=== PATIENT | female | born 1970 ===

== ENCOUNTER 2021-07-08 01:11 | Emergency (ER) | payer OTHER, SELFPAY ==
--- NOTE | ~2021-07-08 | CT_ITS ---
EXAMINATION: CT ABDOMEN AND PELVIS WITH CONTRAST CLINICAL INFORMATION: Lower abdominal pain COMPARISON: 12/15/2017 TECHNIQUE: Multidetector volumetric images were obtained from the superior aspect of the liver through the pubic symphysis following administration 85 mL of Omnipaque 350 intravenous contrast. Sagittal and coronal reformatted images were obtained on the technologist's workstation. Oral contrast: No This CT examination was performed using dose optimization techniques as appropriate, variously including the following: *Automated exposure control *Adjustment of mA and/or kV according to patient size (this includes techniques or standardized protocols for targeted exams where dose is matched to indication/reason for exam; i.e. extremities or head) *Use of iterative reconstruction technique DLP: 689 mGy-cm FINDINGS: LUNG BASES: The visualized lung bases are unremarkable. LIVER, GALLBLADDER, AND BILIARY TREE: The liver is normal in size, shape, and attenuation. There are a few scattered coarse hepatic parenchymal calcifications likely calcified granulomas. No suspicious liver lesions. Cholecystectomy. No biliary dilatation. PANCREAS: Unremarkable. SPLEEN: Unremarkable. ADRENAL GLANDS: Unremarkable. KIDNEYS AND URETERS: Increased size and number of bilateral nonobstructive intrarenal calculi numbering at least 3 within the right kidney and 6 within the left kidney. The largest stone in the left kidney measures 1.6 cm within the renal pelvis and is associated with urothelial thickening and mild peripelvic fat stranding suggestive of pyelitis. No ureteral calculi kidneys enhance symmetrically. BLADDER: Unremarkable. GASTROINTESTINAL TRACT: The small and large bowel are unremarkable. The appendix is unremarkable. ABDOMINAL WALL: No significant hernia is appreciated. LYMPH NODES: Normal. VASCULAR: Unremarkable. PELVIC VISCERA: Retroflexed uterus. Evidence of previous section. Multiple nabothian cysts present within the cervix. No adnexal abnormalities. OSSEOUS STRUCTURES: No acute or suspicious osseous abnormality CT/CT abdomen pelvis w con IMPRESSION: Bilateral nonobstructive intrarenal calculi, including a 1.6 cm calculus within the left renal pelvis associated with urothelial thickening, hyperemia. Pelvic fat stranding suggestive of pyelitis. No evidence of nephritis. Fleischner guidelines were followed.
[2021-07-08 02:05] VITALS: BP 155/75; PULSE 70; RESP 20; TEMP 36.8; O2SAT 98; BMI 36.6
[2021-07-08] MEDS: Acetaminophen 325 MG TABLET 975 MG PO (03:07)
[2021-07-08 04:00] LABS: Basophils Percent Auto 0.3 % (0-2); Eosinophils Absolute Auto 0.2 X10*3/uL (0.0-0.4); Eosinophils Percent Auto 1.4 % (0-4); Hematocrit 34.3 % (37.0-47.0); Hemoglobin 10.4 g/dl (12.0-16.0); Imm Gran Abs Auto 0.03 X10*3/uL (0.00-0.03); Imm Gran Pct Auto 0.3 % (0.0-0.4); Lymphocytes Absolute Auto 3.5 X10*3/uL (1.2-4.9); Lymphocytes Percent Auto 32.7 % (20-40); MANUAL DIFF FLAG NO; Mean Corpuscular HGB Conc 30.3 g/dl (31.0-35.0); Mean Corpuscular Hemoglobin 21.8 pg (27.0-33.0); Mean Corpuscular Volume 71.9 fL (80.0-98.0); Mean Platelet Volume 10.3 fL (9.4-12.3); Monocytes Absolute Auto 0.7 X10*3/uL (0.1-1.2); Monocytes Percent Auto 6.1 % (2-11); Neutrophils Absolute Auto 6.3 x10*3/uL (2.0-8.3); Neutrophils Percent Auto 59.2 % (45-73); Platelet Count 265 X10*3/uL (160-400); Red Blood Count 4.77 X10*6/uL (4.20-5.50); Red Cell Distribution Width 16.1 % (11.0-16.0); White Blood Count 10.7 X10*3/uL (4.8-10.8)
--- NOTE | 2021-07-08 04:00 | ED_ITS ---
HPI - Abdominal Pain General Chief Complaint: Abdominal Pain Stated Complaint: menstrual pain & blood clots Time Seen by Provider: 07/08/21 01:25 Source: patient and family Mode of arrival: ambulatory History of Present Illness HPI narrative: 51-year-old female who presents for onset of lower abdominal pain that is crampy in nature and feels like her menstrual pain that has been associated with nausea as well as chills, patient reports that her current menstrual bleeding is consistent with all prior and denies any symptoms of perimenopause, history of bleeding disorder, history of kidney stones or diverticulosis. Patient tried her regular menstrual cycle medications without success. Related Data Previous Rx's Medication Instructions Recorded cefixime 400 mg capsule 400 mg PO DAILY 5 Days #5 cap 07/08/21 ketorolac 10 mg tablet 10 mg PO Q6H PRN 5 Days #20 tab 07/08/21 Allergies Allergy/AdvReac Type Severity Reaction Status Date / Time sumatriptan [SUMATRIPTAN] Allergy Mild UNKNOWN Verified 07/08/21 03:56 amitriptyline Allergy Unknown Unknown Verified 07/08/21 03:56 Pt states no food allergies Allergy Unknown Unknown Uncoded 07/08/21 02:05 Review of Systems Review of Systems Pertinent positives and negatives as stated in HPI 10 point review of systems is otherwise negative. [facility] Past Medical History Source: nursing notes reviewed Social History Social History Advance Directives: No Patient : No Physical Exam ED Vital Signs: Vital Signs - 24 hr 07/08/21 02:05 07/08/21 05:18 07/08/21 06:01 Temperature 98.3 F Pulse Rate 70 70 Respiratory Rate 20 18 16 Blood Pressure 155/75 H 140/62 H Pulse Oximetry 98 99 BMI result Body Mass Index 36.6 VITAL SIGNS: Reviewed. GENERAL: Well developed, well nourished, in no acute distress. HEAD: Normocephalic/atraumatic EYES: PERRLA, EOMI EARS: Ext canals without abnormality OROPHARYNX: no oral lesions noted, posterior pharynx clear LUNGS: Normal breath sounds. No adventitious sounds or accessory muscle use. SpO2<98> CARDIOVASCULAR: Regular rate and rhythm without noted murmurs ABDOMEN: Soft, tenderness without rebound in left lower quadrant extending across suprapubic, non-distended with bowel sounds. MUSCULOSKELETAL: No tenderness, deformities, or effusions noted on gross inspection. EXTREMITIES: No cyanosis, clubbing or edema. SKIN: Inspection of the skin reveals no rashes NEUROLOGIC: Alert and oriented x 4. Course Course Course Narrative: 51-year-old female with history and clinical presentation suggestive of possible diverticulitis, renal colic but doubt UTI or menstrual related symptoms. 0545: I suspect infection. Review of all investigations consistent with UTI with ascending infection affecting the the left kidney. Patient provided with pain medication, antibiotics. I discuss all the results with the patient at bedside and she states that this has happened before and that she has been informed that her urine infections ascend into her kidneys. Patient otherwise appears comparable and is receiving antibiotics and will be discharged home with a course of antibiotics. MDM - Abdominal Pain Lab Data Result diagrams: 07/08/21 03:53 07/08/21 03:53 Labs: Lab Results 07/08/21 07/08/21 07/08/21 Range/Units 03:53 03:53 03:53 WBC 10.7 (4.8-10.8) X10*3/uL RBC 4.77 (4.20-5.50) X10*6/uL Hgb 10.4 L (12.0-16.0) g/dl Hct 34.3 L (37.0-47.0) % MCV 71.9 L (80.0-98.0) fL MCH 21.8 L (27.0-33.0) pg MCHC 30.3 L (31.0-35.0) g/dl RDW 16.1 H (11.0-16.0) % Plt Count 265 (160-400) X10*3/uL MPV 10.3 (9.4-12.3) fL Immature Gran % (Auto) 0.3 (0.0-0.4) % Neut % (Auto) 59.2 (45-73) % Lymph % (Auto) 32.7 (20-40) % Barron % (Auto) 6.1 (2-11) % Eos % (Auto) 1.4 (0-4) % Baso % (Auto) 0.3 (0-2) % Lymph # (Auto) 3.5 (1.2-4.9) X10*3/uL Barron # (Auto) 0.7 (0.1-1.2) X10*3/uL Eos # (Auto) 0.2 (0.0-0.4) X10*3/uL Baso # (Auto) 0.0 (0.0-0.2) X10*3/uL Abs Immat Gran (auto) 0.03 (0.00-0.03) X10*3/uL Absolute Neuts (auto) 6.3 (2.0-8.3) x10*3/uL Absolute Nucleated RBC 0.000 (0.0-0.012) X10*3/uL Nucleated RBC % (auto) 0.0 (0.0-0.2) /100WBC Sodium (135-145) mmol/L Potassium (3.3-5.1) mmol/L Chloride (96-108) mmol/L Carbon Dioxide (22-29) mmol/L Anion Gap (12-20) BUN (9-16) mg/dL Creatinine (0.5-1.4) mg/dL Estim Creat Clear Calc Estimated GFR Random Glucose (60-115) mg/dL Lactic Acid (0.5-2.0) mmol/L Calcium (8.4-10.2) mg/dL Total Bilirubin (0.0-1.0) mg/dL AST (5-31) U/L ALT (0-31) U/L Alkaline Phosphatase (39-117) U/L Total Protein (6.5-8.0) g/dL Albumin (3.5-5.0) g/dL Lipase (8-78) U/L Urine Color RED A Urine Appearance CLOUDY Urine pH 6.5 (5.0-8.0) Ur Specific [place] 1.020 (1.005-1.025) Urine Protein 2+ H (NEG-TRACE) MG/DL Urine Glucose (UA) NEG (NEG) MG/DL Urine Ketones 5 (NEG) MG/DL Urine Blood 3+ H (NEG) Urine Nitrite NEG (NEG) Ur Leukocyte Esterase 2+ H (NEG) Urine RBC 76-150 H (0) /HPF Urine WBC 15-29 H (0-4) /HPF Ur Squamous Epith Cells 2+ /LPF Urine Bacteria 1+ /LPF Urine Mucus 2+ /LPF Urine Test NEGATIVE (NEGATIVE) 07/08/21 07/08/21 Range/Units 03:53 06:14 WBC (4.8-10.8) X10*3/uL RBC (4.20-5.50) X10*6/uL Hgb (12.0-16.0) g/dl Hct (37.0-47.0) % MCV (80.0-98.0) fL MCH (27.0-33.0) pg MCHC (31.0-35.0) g/dl RDW (11.0-16.0) % Plt Count (160-400) X10*3/uL MPV (9.4-12.3) fL Immature Gran % (Auto) (0.0-0.4) % Neut % (Auto) (45-73) % Lymph % (Auto) (20-40) % Barron % (Auto) (2-11) % Eos % (Auto) (0-4) % Baso % (Auto) (0-2) % Lymph # (Auto) (1.2-4.9) X10*3/uL [place]ron # (Auto) (0.1-1.2) X10*3/uL Eos # (Auto) (0.0-0.4) X10*3/uL Baso # (Auto) (0.0-0.2) X10*3/uL Abs Immat Gran (auto) (0.00-0.03) X10*3/uL Absolute Neuts (auto) (2.0-8.3) x10*3/uL Absolute Nucleated RBC (0.0-0.012) X10*3/uL Nucleated RBC % (auto) (0.0-0.2) /100WBC Sodium 138 (135-145) mmol/L Potassium 4.9 (3.3-5.1) mmol/L Chloride 108 (96-108) mmol/L Carbon Dioxide 21 L (22-29) mmol/L Anion Gap 14 (12-20) BUN 13 (9-16) mg/dL Creatinine 0.79 (0.5-1.4) mg/dL Estim Creat Clear Calc 75.7 Estimated GFR > 60 Random Glucose 120 H (60-115) mg/dL Lactic Acid 0.7 (0.5-2.0) mmol/L Calcium 8.7 (8.4-10.2) mg/dL Total Bilirubin 0.2 (0.0-1.0) mg/dL AST 22 (5-31) U/L ALT 19 (0-31) U/L Alkaline Phosphatase 77 (39-117) U/L Total Protein 6.8 (6.5-8.0) g/dL Albumin 3.5 (3.5-5.0) g/dL Lipase 33 (8-78) U/L Urine Color Urine Appearance Urine pH (5.0-8.0) Ur Specific [place] (1.005-1.025) Urine Protein (NEG-TRACE) MG/DL Urine Glucose (UA) (NEG) MG/DL Urine Ketones (NEG) MG/DL Urine Blood (NEG) Urine Nitrite (NEG) Ur Leukocyte Esterase (NEG) Urine RBC (0) /HPF Urine WBC (0-4) /HPF Ur Squamous Epith Cells /LPF Urine Bacteria /LPF Urine Mucus /LPF Urine Test (NEGATIVE) Discharge Plan Discharge Clinical Impression: Acute pyelitis, UTI (urinary tract infection) Patient Disposition: Home, Self-Care Instructions: Urinary Tract Infection in Women (DC), Kidney Infection (ED) Additional Instructions: 1. Tylenol 1000 mg, orally, every 6 hours as needed for pain control. Do not exceed 4000 mg within 24 hours. 2. Increase fluid hydration, especially with water. 3. Complete the entire course of antibiotics. I highly recommend you getting further studies to evaluate for a condition that is called ureteral vesicular reflux as a possible source of your ascending urinary infections. 4. Follow-up with your primary care provider in the next 2-3 days for re- evaluation. of note, patient was in the emergency room with her until the time of her discharge. Return to the ER for worsening symptoms. Prescriptions: New ketorolac 10 mg tablet 10 mg PO Q6H PRN (Reason: pain) 5 Days Qty: 20 0RF Rx Instructions: Patient received Toradol in the emergency room. cefixime 400 mg capsule 400 mg PO DAILY 5 Days Qty: 5 0RF Referrals: Eleazar Sanchez PA [Primary Care Provider] -
[2021-07-08 04:02] LABS: Appearance Urine CLOUDY; Color Urine RED; Glucose Urine UA NEG (NEG); Leukocyte Esterase Urine 2+ (NEG); Nitrite Urine NEG (NEG); PH 6.5 (5.0-8.0); UACC Culture Trigger YES; Urine Blood 3+ (NEG); Urine Ketones 5 MG/DL (NEG); Urine Protein 2+ MG/DL (NEG-TRACE)
[2021-07-08 04:04] LABS: UPreg QC Valid YES; Urine Pregnancy NEGATIVE (NEGATIVE)
[2021-07-08 04:11] LABS: Bacteria Urine 1+ /LPF; Mucus Urine 2+ /LPF; Squamous Epithelial Cell Urine 2+ /LPF
[2021-07-08] MEDS: 0.9 % Sodium Chloride 1,000 ML 999 ML IV ×2 (04:18→06:25)
[2021-07-08] MEDS: Ketorolac Tromethamine 30 MG/ML VIAL 15 MG IVPUSH (04:19)
[2021-07-08 04:30] LABS: Alanine Aminotransferase 19 U/L (0-31); Albumin Level 3.5 g/dL (3.5-5.0); Alkaline Phosphatase 77 U/L (39-117); Anion Gap 14 (12-20); Aspartate Amino Transferase 22 U/L (5-31); Bilirubin Total 0.2 mg/dL (0.0-1.0); Blood Urea Nitrogen 13 mg/dL (9-16); Calcium 8.7 mg/dL (8.4-10.2); Carbon Dioxide 21 mmol/L (22-29); Chloride 108 mmol/L (96-108); Creatinine Clr Calc Pharmacy 75.7; Estimated Glomerular Filt Rate > 60; Glucose Random 120 mg/dL (60-115); Lipase 33 U/L (8-78); Potassium 4.9 mmol/L (3.3-5.1); Sodium 138 mmol/L (135-145); Total Protein 6.8 g/dL (6.5-8.0)
[2021-07-08] MEDS: iohexoL 350 MG/ML 100 ML INFUS..BTL 85 ML IV (04:52)
[2021-07-08 05:18] VITALS: BP 140/62; PULSE 70; RESP 18; O2SAT 99
[2021-07-08 06:01] VITALS: RESP 16
[2021-07-08] MEDS: ondansetron HCL 4 MG/2 ML VIAL IVPUSH (06:01)
[2021-07-08] MEDS: HYDROmorphone HCl 0.5 MG/0.5 ML SYRINGE 0.25 MG IVPUSH (06:01)
[2021-07-08] MEDS: cefTRIAXone sodium 1 GM in 0.9 % Sodium Chloride 50 ML IV (06:24)
[2021-07-08 06:32] LABS: Lactic Acid 0.7 mmol/L (0.5-2.0)
[2021-07-08 07:08] VITALS: BP 153/74; PULSE 64; RESP 16; O2SAT 99
== END 2021-07-08 07:10 | disposition home or self-care (01) ==
PROVIDERS: Emergency Provider Student in an Organized Health Care Education/Training Program; PCP Physician Assistant
DX: N10 Acute pyelonephritis (principal); N39.0 Urinary tract infection, site not specified; R10.2 Pelvic and perineal pain; Z79.899 Other long term (current) drug therapy
CPT/HCPCS: 36415; 74177; 80053; 81001; 81025; 83605; 83690; 85025; 87040; 87086; 87147; 96361; 96365; 96375; 99284; J0696; J1170; J1885; J2405; Q9967

== ENCOUNTER 2023-06-08 19:29 | Emergency (ER) | payer MEDICAID, SELFPAY ==
--- NOTE | ~2023-06-08 | CT_ITS ---
CT CERVICAL SPINE WITHOUT CONTRAST CLINICAL INFORMATION: Pain and injury. COMPARISON: None available. TECHNIQUE: A multidetector CT acquisition of the cervical spine is obtained without contrast. This CT examination was performed using dose optimization techniques as appropriate, variously including the following: *Automated exposure control *Adjustment of mA and/or kV according to patient size (this includes techniques or standardized protocols for targeted exams where dose is matched to indication/reason for exam; i.e. extremities or head) *Use of iterative reconstruction technique FINDINGS: There are no acute fractures and there are no acute subluxations. The craniocervical junction is unremarkable. Ossification along the undersurface of the anterior arch of C1 associated with a small retropharyngeal effusion, findings which can be seen in the setting of calcific tendinitis of the longus coli. There is moderate disc volume loss at C5-C6. Craniocervical junction is unremarkable. CT/CT cervical spine wo IV con IMPRESSION: - No acute fractures within the cervical spine. - Ossification along the undersurface of the anterior arch of C1 associated with a small retropharyngeal effusion, findings which can be seen in the setting of calcific tendinitis of the longus coli.
[2023-06-08 19:37] VITALS: BP 143/80; PULSE 86; RESP 17; TEMP 37.3; O2SAT 98; BMI 34.8
--- NOTE | 2023-06-08 19:43 | ED_ITS ---
HPI - General Adult General Chief complaint: Neck Pain/Injury Stated complaint: neck pain, sore throat Time Seen by Provider: 06/09/23 04:13 Source: patient and family Mode of arrival: ambulatory Limitations: no limitations History of Present Illness HPI narrative: Patient comes to the emergency room complaining of atraumatic right-sided neck pain for approximately 5 days. Patient states that she was seen by her primary care physician, tested negative for COVID flu and strep. Patient was given tramadol. Patient states that she was given a muscle relaxant which she has not working. Patient went to [facility] yesterday, states that she was prescribed the same medication that her primary care physician. Patient denies sore throat, patient states it is muscle pain on the right side. Patient denies any injuries. Patient states that turning her neck [id number] makes it worse more. Related Data Previous Rx's Medication Instructions Recorded cefixime 400 mg capsule 400 mg PO DAILY 5 days #5 caps 07/08/21 ketorolac 10 mg tablet 10 mg PO Q6H PRN pain 5 days #20 07/08/21 tabs diazepam 2 mg tablet 2 mg PO BID PRN muscle spasm #6 06/09/23 tabs ketorolac 10 mg tablet 10 mg PO TID PRN pain #10 tabs 06/09/23 Allergies Allergy/AdvReac Type Severity Reaction Status Date / Time sumatriptan [SUMATRIPTAN] Allergy Mild UNKNOWN Verified 06/08/23 19:37 amitriptyline Allergy Unknown Unknown Verified 06/08/23 19:37 Pt states no food allergies Allergy Unknown Unknown Uncoded 07/08/21 02:05 Review of Systems 2 Review of Systems: Constitutional : No Weight loss, No Fever, No Chills, No Night Sweats, No Fatigue, No Malaise ENT/Mouth : No Hearing loss, No Ear Pain, No Nasal Congestion, No Sinus Pain, No Hoarseness, No sore throat, No Rhinorrhea, No Swallowing Difficulty Eyes: No Eye Pain, No Swelling, No Redness, No Foreign Body, No Discharge, No Vision Changes Cardiovascular : No Chest Pain, No SOB, No Dyspnea on Exertion, No Orthopnea, No Edema, No Palpitations Respiratory : No Cough, No Sputum, No Wheezing, No Smoke Exposure, No Dyspnea Gastrointestinal : No Nausea, No Vomiting, No Diarrhea, No Constipation, No abdominal Pain, No Hematochezia, No Melena Genitourinary : no irregular bleeding, No Dysuria, No Urinary Frequency, No Hematuria, No Urinary Incontinence, No Urgency, No Flank Pain, No Urinary Flow Changes, No Hesitancy Musculoskeletal : Complaining of muscular pain on the lateral right side of the neck. No joint pain, No Myalgias, No Joint Swelling Skin : No Skin Lesions, No rash Neuro : No Weakness, No Numbness, No Paresthesias, No Loss of Consciousness, No Dizziness, No Headache Psych : No Anxiety/Panic, No Depression, No SI/HI/AH/VH, No Social Issues, Heme/Lymph: No Bruising, No Bleeding,No Lymphadenopathy Endocrine : No Polyuria, No Polydipsia, No Temperature Intolerance [facility] Social History Social History Alcohol intake: never Physical Exam ED Vital Signs: Vital Signs - 24 hr 06/08/23 19:37 06/08/23 23:52 06/09/23 03:37 Temperature 99.2 F 99.0 F 98.5 F Pulse Rate 86 89 84 Respiratory Rate 17 17 14 Blood Pressure 143/80 H 119/73 153/71 H Pulse Oximetry 98 98 97 Oxygen Delivery Method Room Air Room Air Room Air BMI result Body Mass Index 34.8 Const Other: Appearance: Alert. Oriented X3. No acute distress. Eyes: Pupils equal, round and reactive to light. ENT: Pharynx normal. Neck: Pain pain to palpation around the sternocleidomastoid muscle distribution. Patient states it hurts to turn her head right to left. Patient able to flex and extend, no neck rigidity CVS: Normal heart rate and rhythm. Pulses normal. Normal S1 and S2 Respiratory: No respiratory distress. Breath sounds normal. No Wheezing. No rales Abdomen: Soft and nontender. No rigidity. No distention. Skin: Skin warm and dry. Normal skin color. Normal skin turgor. Extremities: No lower extremity edema. No Lacerations. No Rash Neuro: Oriented X 3. No motor deficit. No sensory deficit. Moving all extremities. No slurred speech. CN 2 through 12 grossly intact Psych: calm, cooperative, normal affect Course Course Course Narrative: RME performed by Dai Harrison PA-C. Patient is a 53 year old assigned female at presenting to the emergency department with neck and throat pain. Patient has been evaluated for this and given tramadol but it is not helping. Detailed physical exam and review of systems are deferred to the truck operator. Labs, imaging, and swabs ordered. Patient placed back in the waiting room pending room availability and results. Medical Decision Making Medical Decision Making [facility] Narrative: -my interpretation of labs: White blood cell count 11.7. Likely reactive leukocytosis. Chemistry within normal limits. -interpretation CT scan: No obvious abnormality. -I discussed the physical exam with the patient her , patient likely having torticolis -patient showed me her list of medications that were prescribed yesterday, she was prescribed tramadol and lozenges for sore throat, I do not see any muscle relaxants on the list that she provided -here in the ED, patient was given the 1st dose of IM Toradol and p.o. diazepam 2 mg. -I discussed with the patient that if she does not improve within the next 48 hours, patient may need physical therapy that can be arranged through her primary care physician Differential Diagnosis Differential Diagnoses: The differential diagnosis associated with the presentation includes (Cervical injury, muscle spasms, torticollis, lymphadenopathy) Lab Data [facility] Lab Attestation statement: I reviewed the patient's lab results. 06/08/23 21:06 06/08/23 21:06 Labs: Lab Results 06/08/23 Range/Units 21:06 WBC 11.7 H (4.8-10.8) X10*3/uL RBC 4.81 (4.20-5.50) X10*6/uL Hgb 11.6 L (12.0-16.0) g/dl Hct 36.5 L (37.0-47.0) % MCV 75.9 L (80.0-98.0) fL MCH 24.1 L (27.0-33.0) pg MCHC 31.8 (31.0-35.0) g/dl RDW 15.5 (11.0-16.0) % Plt Count 232 (160-400) X10*3/uL MPV 10.0 (9.4-12.3) fL Immature Gran % (Auto) 0.3 (0.0-0.4) % Neut % (Auto) 74.3 H (45-73) % Lymph % (Auto) 18.7 L (20-40) % Ada % (Auto) 6.2 (2-11) % Eos % (Auto) 0.2 (0-4) % Baso % (Auto) 0.3 (0-2) % Lymph # (Auto) 2.2 (1.2-4.9) X10*3/uL [place] # (Auto) 0.7 (0.1-1.2) X10*3/uL Eos # (Auto) 0.0 (0.0-0.4) X10*3/uL Baso # (Auto) 0.0 (0.0-0.2) X10*3/uL Abs Immat Gran (auto) 0.04 H (0.00-0.03) X10*3/uL Absolute Neuts (auto) 8.7 H (2.0-8.3) x10*3/uL Absolute Nucleated RBC 0.000 (0.0-0.012) X10*3/uL Nucleated RBC % (auto) 0.0 (0.0-0.2) /100WBC Sodium 138 (135-145) mmol/L Potassium 3.8 (3.3-5.1) mmol/L Chloride 101 (96-108) mmol/L Carbon Dioxide 29 (22-29) mmol/L Anion Gap 12 (12-20) BUN 7 L (9-16) mg/dL Creatinine 0.65 (0.5-1.4) mg/dL Estim Creat Clear Calc 87.5 Estimated GFR > 60 Random Glucose 124 H (60-115) mg/dL Calcium 9.5 D (8.4-10.2) mg/dL Magnesium 1.8 (1.6-2.6) mg/dL Total Bilirubin 0.5 (0.0-1.0) mg/dL AST 11 (5-31) U/L ALT 14 (0-31) U/L Alkaline Phosphatase 67 (39-117) U/L Total Protein 7.7 (6.5-8.0) g/dL Albumin 3.9 (3.5-5.0) g/dL Monoscreen Negative (Negative) Influenza Type A (PCR) NEGATIVE (Negative) Influenza Type B (PCR) NEGATIVE (Negative) RSV RNA Qual (PCR) NEGATIVE (Negative) SARS-CoV-2 RNA (RT-PCR) NEGATIVE (Negative) S. pyogenes GrpA KORIN Negative (Negative) Independent Interpretation I performed an independent interpretation of an: CT Scan Radiology Impression Discussion of test interpretation with radiology: I have reviewed the radiologist's reading. Radiologist Impression: FINDINGS: There are no acute fractures and there are no acute subluxations. The craniocervical junction is unremarkable. Ossification along the undersurface of the anterior arch of C1 associated with a small retropharyngeal effusion, findings which can be seen in the setting of calcific tendinitis of the longus coli. There is moderate disc volume loss at C5-C6. Craniocervical junction is unremarkable. CT/CT cervical spine wo IV con IMPRESSION: - No acute fractures within the cervical spine. - Ossification along the undersurface of the anterior arch of C1 associated with a small retropharyngeal effusion, findings which can be seen in the setting of calcific tendinitis of the longus coli. Discharge Plan Discharge Clinical Impression: Torticollis Patient Disposition: Home, Self-Care Instructions: Neck Pain (ED) Additional Instructions: Please follow-up with your primary care physician tomorrow. If you have any worsening or new symptoms, please return to the emergency room or call 911 Prescriptions: New diazepam 2 mg tablet 2 mg PO BID PRN (Reason: muscle spasm) Qty: 6 0RF ketorolac 10 mg tablet 10 mg PO TID PRN (Reason: pain) Qty: 10 0RF Rx Instructions: do not take this medications with ibuprofen, advil, naproxen, or any other NSAIDS. Tramadol or acetaminophen is acceptable No Action ketorolac 10 mg tablet 10 mg PO Q6H PRN (Reason: pain) 5 Days Qty: 20 0RF Rx Instructions: Patient received Toradol in the emergency room. cefixime 400 mg capsule 400 mg PO DAILY 5 Days Qty: 5 0RF
[2023-06-08 21:12] LABS: MANUAL DIFF FLAG NO
[2023-06-08 21:13] LABS: Basophils Percent Auto 0.3 % (0-2); Eosinophils Percent Auto 0.2 % (0-4); Hematocrit 36.5 % (37.0-47.0); Hemoglobin 11.6 g/dl (12.0-16.0); Imm Gran Abs Auto 0.04 X10*3/uL (0.00-0.03); Imm Gran Pct Auto 0.3 % (0.0-0.4); Lymphocytes Absolute Auto 2.2 X10*3/uL (1.2-4.9); Lymphocytes Percent Auto 18.7 % (20-40); Mean Corpuscular HGB Conc 31.8 g/dl (31.0-35.0); Mean Corpuscular Hemoglobin 24.1 pg (27.0-33.0); Mean Corpuscular Volume 75.9 fL (80.0-98.0); Monocytes Absolute Auto 0.7 X10*3/uL (0.1-1.2); Monocytes Percent Auto 6.2 % (2-11); Neutrophils Absolute Auto 8.7 x10*3/uL (2.0-8.3); Neutrophils Percent Auto 74.3 % (45-73); Platelet Count 232 X10*3/uL (160-400); Red Blood Count 4.81 X10*6/uL (4.20-5.50); Red Cell Distribution Width 15.5 % (11.0-16.0); White Blood Count 11.7 X10*3/uL (4.8-10.8)
[2023-06-08 21:22] LABS: IDNOW Serial# 58CA691E; Strep A Nucleic Acid Negative (Negative)
[2023-06-08 21:27] LABS: Alanine Aminotransferase 14 U/L (0-31); Albumin Level 3.9 g/dL (3.5-5.0); Alkaline Phosphatase 67 U/L (39-117); Anion Gap 12 (12-20); Aspartate Amino Transferase 11 U/L (5-31); Bilirubin Total 0.5 mg/dL (0.0-1.0); Blood Urea Nitrogen 7 mg/dL (9-16); Calcium 9.5 mg/dL (8.4-10.2); Carbon Dioxide 29 mmol/L (22-29); Chloride 101 mmol/L (96-108); Creatinine Clr Calc Pharmacy 87.5; Estimated Glomerular Filt Rate > 60; Glucose Random 124 mg/dL (60-115); Magnesium 1.8 mg/dL (1.6-2.6); Potassium 3.8 mmol/L (3.3-5.1); Sodium 138 mmol/L (135-145); Total Protein 7.7 g/dL (6.5-8.0)
[2023-06-08 21:31] LABS: Monotest Negative (Negative)
[2023-06-08 21:49] LABS: Influenza A PCR NEGATIVE (Negative); Influenza B PCR NEGATIVE (Negative); Resp Syncy Virus RNA Qual PCR NEGATIVE (Negative); SARS COV2 PCR INHOUSE NEGATIVE (Negative)
[2023-06-08 23:52] VITALS: BP 119/73; PULSE 89; RESP 17; TEMP 37.2; O2SAT 98
[2023-06-09 03:37] VITALS: BP 153/71; PULSE 84; RESP 14; TEMP 36.9; O2SAT 97
[2023-06-09] MEDS: diazePAM 2 MG TABLET PO (04:32)
[2023-06-09] MEDS: Ketorolac Tromethamine 60 MG/2 ML VIAL IM (04:32)
[2023-06-09 04:41] VITALS: BP 149/76; PULSE 87; RESP 15; TEMP 36.8; O2SAT 98
== END 2023-06-09 04:42 | disposition home or self-care (01) ==
PROVIDERS: Physician Assistant Medical; Emergency Provider Emergency Medicine
DX: M43.6 Torticollis (principal); M54.2 Cervicalgia; Z11.52 Encounter for screening for COVID-19; Z20.822 Contact with and (suspected) exposure to COVID-19; Z79.899 Other long term (current) drug therapy
CPT/HCPCS: 0241U; 72125; 80053; 83735; 85025; 86308; 87651; 96372; 99284; J1885